=== PATIENT | female | born 1975 ===

== ENCOUNTER 2022-06-06 15:11 | Emergency (ER) | payer OTHER, SELFPAY ==
[2022-06-06] MEDS ORDERED: HYDROcodone/Acetaminophen 5/325 mg Tablet ONE (16:20)
== END 2022-06-06 17:30 | disposition home or self-care (01) ==
LOC: ERS 15:11
DX: S42.002A Fracture of unspecified part of left clavicle, initial encounter for closed fracture (principal); V29.99XA Rider (driver) (passenger) of other motorcycle injured in unspecified traffic accident, initial encounter
CPT/HCPCS: 71045